=== PATIENT | female | born 1975 | race Caucasian/White ===

== ENCOUNTER 2017-01-06 18:36 | Emergency (ER) | payer SELFPAY ==
[~2017-01-06] VITALS: Ht 157.5 cm; Wt 77.7 kg
[2017-01-06 18:47] VITALS: BP 135/86
--- NOTE | 2017-01-06 20:30 | NUR ---
TO ER BED 7
--- NOTE | 2017-01-06 20:36 | NUR ---
41 Y/O F W/C/O VAGINAL BLEEDING X 2 MTHS AND LOWER ABD PAIN/ CRAMPING X 2 WKS. PT STATES WAS DIAGNOSED WITH AN OVARIAN CYST. MED HX OVARIAN CYST, AND CYST ON BILATERAL BREAST, HTN.
[2017-01-06 20:37] LABS: BASOPHILS # (AUTO) 0.1 K/uL (0.00-0.22); BASOPHILS % (AUTO) 0.5 % (0.0-2.0); EOSINOPHILS # (AUTO) 0.1 K/uL (0-0.4); EOSINOPHILS % (AUTO) 0.8 % (0.0-4.0); HEMATOCRIT 33.7 % (36-48); HEMOGLOBIN 10.7 g/dL (12.0-16.0); LYMPHOCYTES # (AUTO) 3.2 K/uL (2.5-16.5); LYMPHOCYTES % (AUTO) 24.6 % (20.5-51.1); MEAN CORPUSCULAR HEMOGLOBIN 23 pg (27-31); MEAN CORPUSCULAR HGB CONC 32 g/dL (33-37); MEAN CORPUSCULAR VOLUME 72 fL (80-94); MONOCYTES # (AUTO) 0.8 K/uL (0.8-1.0); MONOCYTES % (AUTO) 5.9 % (1.7-9.3); NEUTROPHILS # (AUTO) 8.9 K/uL (1.8-7.7); NEUTROPHILS % (AUTO) 68.2 % (42.2-75.2); PLATELET COUNT (AUTO) 383 K/uL (140-450); RED BLOOD CELL COUNT(AUTO) 4.66 MIL/uL (4.20-5.40); RED CELL DISTRIBUTION WIDTH 16.8 % (11.6-13.7); WHITE BLOOD COUNT (AUTO) 13.1 K/uL (4.8-10.8)
--- NOTE | 2017-01-06 20:44 | NUR ---
MOVED TO ER BED 8
[2017-01-06 20:45] LABS: ANION GAP 12.8 (8-16); CALCIUM 8.9 mg/dL (8.5-10.1); CARBON DIOXIDE 28.3 mmol/L (21-32); CREATININE 0.7 mg/dL (0.6-1.3); POTASSIUM 4.1 mmol/L (3.5-5.1)
[2017-01-06 20:54] LABS: BILIRUBIN,URINE NEGATIVE (NEGATIVE); BLOOD, URINE 3+ (NEGATIVE); NITRITE, URINE NEGATIVE (NEGATIVE); PROTEIN,URINE 3+ (NEGATIVE); UGLUCOSE NEGATIVE (NEGATIVE); UROBILINOGEN,URINE 0.2 EU/dL (0.2 - 1)
[2017-01-06 20:55] LABS: APPEARANCE,URINE TURBID (CLEAR); COLOR,URINE BLOODY (YELLOW)
[2017-01-06 20:56] LABS: LEUKOCYTE ESTERASE ,URINE NEGATIVE (NEGATIVE)
[2017-01-06 20:57] LABS: RBC,URINE TOO NUMEROUS TO COUN /HPF (0-5)
[2017-01-06 20:59] LABS: BACTERIA,URINE FEW /HPF (None Seen); SQUAMOUS EPITHELIAL CELL,UR 0-5 /LPF (0-3 (FEW))
--- NOTE | 2017-01-06 21:30 | NUR ---
PT RESTING IN BED AWATING FOR RESULTS. NO S/S OF DISTRESS NOTED AT THE MOMENT.
--- NOTE | 2017-01-06 22:00 | NUR ---
Patient discharged with v/s stable. Written and verbal after care instructions given and explained. Patient alert, oriented and verbalized understanding of instructions. Ambulatory with steady gait. All questions addressed prior to discharge. ID band removed. Patient advised to follow up with PMD OR RETURN TO ER IF CONDITION WORSENS. Rx of PROVERA given. Patient educated on indication of medication including possible reaction and side effects. Opportunity to ask questions provided and answered.
[2017-01-06 22:04] VITALS: BP 102/70
== END 2017-01-06 22:00 | disposition home or self-care (01) ==
LOC: MED 18:36
DX: N93.8 Other specified abnormal uterine and vaginal bleeding (principal); R10.9 Unspecified abdominal pain; Z90.710 Acquired absence of both cervix and uterus
CPT/HCPCS: 36415; 76830; 76856; 80048; 81001; 84702; 85025; 99285